=== PATIENT | male | born 1950 | race Caucasian/White ===

== ENCOUNTER → 2020-11-19 | Outpatient (CLI) | payer OTHER, MEDICARE ==
[~2020-11-19] MED LIST: ASPIRIN325 PO; ATIVAN1 MG PO; CALCIUM + D SO1 EACH PO; CARBIDOPA-LEVO1 EAC9 PO; CENTRUM SILVER1 EAC2 PO; CLONAZEPAM 0.50.5 M1 PO; COMBIVENT INH; CRESTOR20 MG PO; CYCLOSPORINE M100 MG PO; CYCLOSPORINE25 M1 PO; HUMALOG100 UNIT/1 SUBQ; JANUVIA50 MG PO; LANTUS SUBQ; LIPITOR 20 MG T20 M1 PO; LISINOPRIL20 MG PO; LOPRESSOR25 PO; MAGOX 400400 MG PO; METOPROLOL SUCC50 MG PO; MYCOPHENOLIC A360 MG PO; NEPHROCAPS SOFT1 CAP PO; NORCO 5-325 TA1 EACH PO; NOVOLOG100 UNIT/1 SUBQ; PHOSLO667 MG PO; PHOSPHA 250 NE250 MG PO; PREDNISONE 5 MG5 M1 PO; SERTRALINE HCL50 MG PO; TESTOSTERONE CYP IM; VYTORIN 10-201 EACH PO
== END ==
LOC: SJCVC 10:11
PROVIDERS: ATTEND Internal Medicine Cardiovascular Disease
DX: I25.10 Atherosclerotic heart disease of native coronary artery without angina pectoris (principal); R94.31 Abnormal electrocardiogram [ECG] [EKG]; R00.1 Bradycardia, unspecified; E78.00 Pure hypercholesterolemia, unspecified; R60.9 Edema, unspecified; I12.0 Hypertensive chronic kidney disease with stage 5 chronic kidney disease or end stage renal disease; N18.6 End stage renal disease; M81.0 Age-related osteoporosis without current pathological fracture; Z94.0 Kidney transplant status; Z95.1 Presence of aortocoronary bypass graft; Z79.82 Long term (current) use of aspirin; Z79.899 Other long term (current) drug therapy; Z87.891 Personal history of nicotine dependence; Z82.49 Family history of ischemic heart disease and other diseases of the circulatory system